=== PATIENT | male | born 1975 | race Caucasian/White ===

== ENCOUNTER 2020-06-04 20:48 | Emergency (ER) | payer OTHER ==
[~2020-06-04] VITALS: Ht 175.3 cm; Wt 104.3 kg
[2020-06-04] MEDS ORDERED: SINGULAIR5 MG (20:59)
[2020-06-04] MEDS ORDERED: [UNRECOGNIZED DRUG - OTHER] (21:00)
[2020-06-05] MEDS ORDERED: ZITHROMAX500 MG PO (02:33)
== END 2020-06-05 03:34 | disposition home or self-care (01) ==
LOC: ER 20:48
DX: B34.9 Viral infection, unspecified (principal); J11.1 Influenza due to unidentified influenza virus with other respiratory manifestations; Z20.828 Contact with and (suspected) exposure to other viral communicable diseases

== ENCOUNTER 2023-06-05 08:31 | Outpatient (CLI) | payer OTHER ==
[~2023-06-05 08:31] MED LIST: SINGULAIR5 MG; ZITHROMAX500 MG PO; [UNRECOGNIZED DRUG - OTHER]
== END 2023-06-05 08:36 | disposition home or self-care (01) ==
LOC: SONOGRAMA 08:31
PROVIDERS: ATTEND Internal Medicine Endocrinology, Diabetes & Metabolism
DX: E04.1 Nontoxic single thyroid nodule (principal)